=== PATIENT | female | born 1995 | race Caucasian/White ===

== ENCOUNTER 2020-12-26 15:16 | Emergency (ER) | payer MEDICAID ==
[~2020-12-26] VITALS: Ht 157.5 cm; Wt 113.6 kg
[2020-12-26 15:53] VITALS: BP 141/104
[2020-12-26] MEDS ORDERED: ketorolac tromethamine 15mg/ml inj. IM ONE (16:45)
[2020-12-26] MEDS ORDERED: IBUP-1984 PO (17:00)
== END 2020-12-26 17:21 | disposition home or self-care (01) ==
LOC: ER 15:17
DX: S93.402A Sprain of unspecified ligament of left ankle, initial encounter (principal); Z79.899 Other long term (current) drug therapy; X50.1XXA Overexertion from prolonged static or awkward postures, initial encounter; Y93.69 Activity, other involving other sports and athletics played as a team or group; Y92.89 Other specified places as the place of occurrence of the external cause; Y99.8 Other external cause status
CPT/HCPCS: 73610; 96372; 99284; J1885

== ENCOUNTER 2021-10-03 11:52 | Emergency (ER) | payer MEDICAID ==
[~2021-10-03] VITALS: Ht 157.5 cm; Wt 97.7 kg
[2021-10-03 12:20] VITALS: BP 141/94
[2021-10-03] MEDS ORDERED: diazepam 5mg tablet PO ONE (12:35)
[2021-10-03] MEDS ORDERED: ketorolac tromethamine 15mg/ml inj. IM ONE (12:35)
[2021-10-03] MEDS ORDERED: IBUP-1984 PO (13:35)
[2021-10-03] MEDS ORDERED: DIAZ5TAB22 PO (13:35)
== END 2021-10-03 13:33 | disposition home or self-care (01) ==
LOC: ER 11:55
DX: M25.511 Pain in right shoulder (principal); Z79.899 Other long term (current) drug therapy
CPT/HCPCS: 73030; 96372; 99283; J1885